=== PATIENT | female | born 1955 | race Caucasian/White ===

== ENCOUNTER 2017-02-06 01:29 | Inpatient (IN) | payer MEDICARE ==
[~2017-02-06] VITALS: Ht 162.6 cm; Wt 93.8 kg
[2017-02-06] MEDS ORDERED: ONDANSETRON ODT 4 MG ONE (01:59)
[2017-02-06] MEDS ORDERED: SODIUM CHLORIDE 0.9% 1,000ML IVBOLUS ONE (02:00)
[2017-02-06] MEDS ORDERED: SODIUM CHLORIDE FLUSH 10ML SYR IVF ONE (02:00)
[2017-02-06] MEDS ORDERED: LORazepam 2 MG/ML, 1ML ONE (02:08)
[2017-02-06 02:13] LABS: HEMATOCRIT 40.4 % (34.6-47.8); HEMOGLOBIN 13.9 g/dL (11.7-16.4); WHITE BLOOD COUNT 11.4 x10^3/uL (3.4-10)
[2017-02-06] MEDS ORDERED: HYDROmorphone 1 MG/ML, 1ML ONE ×3 (02:14→04:45)
[2017-02-06 02:24] LABS: ASPARTATE AMINO TRANSFERASE 25 U/L (15-37); BLOOD UREA NITROGEN 15 mg/dL (7-18)
[2017-02-06] MEDS ORDERED: LORazepam 2 MG/ML, 1ML IVPush ONE (02:30)
[2017-02-06] MEDS ORDERED: ONDANSETRON ODT 4 MG PO ONE (02:30)
[2017-02-06] MEDS ORDERED: HYDROmorphone 1 MG/ML, 1ML IV ONE ×2 (02:30→03:30)
[2017-02-06 02:35] LABS: IS PT STATUS REG ER OR PRE ER? YES
[2017-02-06] MEDS ORDERED: OMNIPAQUE 350 MG/ML, 100ML BOTTLE ONE (03:02)
[2017-02-06] MEDS ORDERED: ONDANSETRON 2MG/ML, 2ML IVPush PRN (04:30)
[2017-02-06] MEDS ORDERED: ACETAMINOPHEN 325 MG TABLET PO PRN (04:30)
[2017-02-06] MEDS ORDERED: LORazepam 2 MG/ML, 1ML IVPush PRN (04:30)
[2017-02-06] MEDS ORDERED: hydrALAzine 20 MG/ML, 1ML IVPush PRN (04:30)
[2017-02-06] MEDS: HYDROmorphone 2 MG/ML, 1ML IVPush PRN ×3 (04:52→13:27)
[2017-02-06 05:44] VITALS: BP_SYST 122; BP_SYST 134; BP_DIAS 70; BP_DIAS 75
[2017-02-06] MEDS: GABAPENTIN 300 MG CAPSULE PO SCH ×4 (06:12→21:58)
[2017-02-06] MEDS: ENOXAPARIN 40 MG/0.4 ML SQ SCH (06:12)
[2017-02-06] MEDS: LEVOTHYROXINE 100 MCG TABLET PO SCH (06:12)
[2017-02-06 06:57] VITALS: BP 106/66
[2017-02-06 06:58] VITALS: BP 105/67
[2017-02-06 06:59] VITALS: BP 99/69
[2017-02-06] MEDS: SERTRALINE 50MG TABLET PO SCH (09:53)
[2017-02-06] MEDS: SODIUM CHLORIDE FLUSH 10ML SYR IVF SCH ×2 (09:54→21:58)
[2017-02-06] MEDS: PANTOPRAZOLE 40 MG IV IVPush SCH (09:54)
[2017-02-06] MEDS: LAMOTRIGINE 100 MG TABLET PO SCH ×2 (10:00→21:58)
[2017-02-06 14:00] VITALS: BP 102/64
[2017-02-06 20:00] VITALS: BP 114/69
[2017-02-06] MEDS: OXYcodone IR 5MG TABLET PO PRN (21:58)
[2017-02-07] MEDS: HYDROmorphone 2 MG/ML, 1ML IVPush PRN ×3 (01:20→18:33)
[2017-02-07 02:00] VITALS: BP 93/58
[2017-02-07] MEDS: ENOXAPARIN 40 MG/0.4 ML SQ SCH (06:10)
[2017-02-07] MEDS: LEVOTHYROXINE 100 MCG TABLET PO SCH (06:10)
[2017-02-07] MEDS: GABAPENTIN 300 MG CAPSULE PO SCH ×4 (06:11→22:42)
[2017-02-07 07:21] VITALS: BP 122/64
[2017-02-07] MEDS: LAMOTRIGINE 100 MG TABLET PO SCH ×2 (08:42→22:42)
[2017-02-07] MEDS: PANTOPRAZOLE 40 MG IV IVPush SCH (08:42)
[2017-02-07] MEDS: SODIUM CHLORIDE FLUSH 10ML SYR IVF SCH ×2 (08:42→22:43)
[2017-02-07] MEDS: SERTRALINE 50MG TABLET PO SCH (08:42)
[2017-02-07] MEDS ORDERED: GABAPENTIN 100 MG CAPSULE ONE (10:12)
[2017-02-07] MEDS: DOCUSATE 100 MG CAPSULE PO PRN ×2 (10:13→22:42)
[2017-02-07] MEDS: OXYcodone IR 5MG TABLET PO PRN ×2 (13:30→22:46)
[2017-02-07 14:55] VITALS: BP 117/70
[2017-02-07 21:33] VITALS: BP 84/46
[2017-02-07] MEDS: POLYETHYLENE GLYCOL 17 GM PACKET NG PRN (22:42)
[2017-02-08] MEDS: HYDROmorphone 2 MG/ML, 1ML IVPush PRN ×2 (01:46→08:25)
[2017-02-08 02:41] VITALS: BP 104/64
[2017-02-08] MEDS ORDERED: LEVOTHYROXINE 150 MCG TABLET PO SCH (06:00)
[2017-02-08] MEDS: GABAPENTIN 300 MG CAPSULE PO SCH (06:28)
[2017-02-08] MEDS: OXYcodone IR 5MG TABLET PO PRN (06:28)
[2017-02-08] MEDS: ENOXAPARIN 40 MG/0.4 ML SQ SCH (06:29)
[2017-02-08] MEDS ORDERED: LEVO150T PO (07:43)
[2017-02-08] MEDS ORDERED: LAMO100T PO (07:43)
[2017-02-08] MEDS ORDERED: GABA300C10 PO (07:43)
[2017-02-08] MEDS ORDERED: SERT50TA5 PO (07:43)
[2017-02-08] MEDS: LAMOTRIGINE 100 MG TABLET PO SCH (08:24)
[2017-02-08] MEDS: SODIUM CHLORIDE FLUSH 10ML SYR IVF SCH (08:24)
[2017-02-08] MEDS: POLYETHYLENE GLYCOL 17 GM PACKET NG PRN (08:25)
[2017-02-08] MEDS: SERTRALINE 50MG TABLET PO SCH (08:26)
[2017-02-08 08:48] VITALS: BP 108/61
[2017-02-08] MEDS ORDERED: HYDR-3240 PO (10:06)
== END 2017-02-08 10:14 | disposition home or self-care (01) | DRG 644 ==
LOC: ED 02:11 → EDIP 04:08 → 4EST 05:23 → DCLOUNGE 02-08 10:03
PROVIDERS: ADMIT Family Medicine; ATTEND Internal Medicine
DX: E03.9 Hypothyroidism, unspecified (principal); A69.20 Lyme disease, unspecified; E87.6 Hypokalemia; F32.9 Major depressive disorder, single episode, unspecified; G62.9 Polyneuropathy, unspecified; Z80.8 Family history of malignant neoplasm of other organs or systems; Z82.3 Family history of stroke; Z83.3 Family history of diabetes mellitus; Z85.820 Personal history of malignant melanoma of skin; Z90.49 Acquired absence of other specified parts of digestive tract; Z90.89 Acquired absence of other organs; Z90.710 Acquired absence of both cervix and uterus; Z88.8 Allergy status to other drugs, medicaments and biological substances
CPT/HCPCS: 36415; 51702; 71275; 80053; 82533; 84443; 84484; 85025; 85610; 93005; 93306; 93880; 96361; 96374; 96375; 96376; J1170; J1650; J2405; Q0162; Q9967; C9113; J2060; J7030

== ENCOUNTER → 2018-01-23 | Outpatient (CLI) | payer MEDICARE, OTHER ==
[~2018-01-23] MED LIST: CLON0.5T11 PO; GABA300C10 PO; GABA600T2 PO; HYDR-3240 PO; LAMO100T PO; LAMO200T3 PO; LEVO100T PO; LEVO150T PO; SERT25TA3 PO; SERT50TA5 PO
== END | disposition home or self-care (01) ==
LOC: STAR 13:01
PROVIDERS: ATTEND Orthopaedic Surgery
DX: Z01.818 Encounter for other preprocedural examination (principal); S83.282A Other tear of lateral meniscus, current injury, left knee, initial encounter; X58.XXXA Exposure to other specified factors, initial encounter; Y93.89 Activity, other specified; Y92.89 Other specified places as the place of occurrence of the external cause; Y99.8 Other external cause status
CPT/HCPCS: 93005

== ENCOUNTER → 2018-01-28 | Outpatient (CLI) | payer OTHER | END | disposition home or self-care (01) | LOC: RAD 16:03 | PROVIDERS: ATTEND Urology | DX: M51.86 Other intervertebral disc disorders, lumbar region (principal); N20.9 Urinary calculus, unspecified; Z87.442 Personal history of urinary calculi | CPT/HCPCS: 74018 ==

== ENCOUNTER 2018-04-01 14:04 | Inpatient (IN) | payer OTHER ==
[~2018-04-01] VITALS: Ht 157.5 cm; Wt 84.1 kg
[~2018-04-01 14:04] MED LIST changes: -GABA600T2 PO; +GABA600T7 PO; +SERT50TA28 PO; -SERT50TA5 PO
--- NOTE | 2018-04-01 14:05 | NUR ---
JOSE FOSTER FROM UROLOGY OFFICE W/ CO L FLANK PAIN. +BLOOD IN URINE/INCONTINENCE OF URINE AND STOOL. PT REPORTS HX OF CHRONIC KIDNEY STONES AND MULTIPLE SX TO REMOVE STONES. PT DENIES CP/SOB/N/V/D/FEVER. "THEY SENT ME HERE TO HAVE THE STONES REMOVED". IV ESTABLISHED AND PT MEDICATED W/ TORADOL, MORPHINE AND ZOFRAN CASH [employer] CALCULATOR. UPON ARRIVAL, PT REPORTS 7/10 PAIN AND DENIES NEED FOR FURTHER PAIN MEDICATIONS. SO AT BEDSIDE. ERP AT BEDSIDE FOR INITIAL ASSESSMENT.
[2018-04-01] MEDS ORDERED: SODIUM CHLORIDE FLUSH 10ML SYR IVF ONE (14:30)
--- NOTE | 2018-04-01 14:50 | NUR ---
EUNICE VILLEDA COLLECTED AND WALKED TO LAB. PT TO XRAY ON 2L BY NELIDA FOR SUPPORT
[2018-04-01 15:08] LABS: MICROSCOPIC AUTO
[2018-04-01 15:09] LABS: BASOPHILS % (AUTO) 1 % (0-1); EOSINOPHILS # (AUTO) 0.07 x10^3/uL (0-0.4); EOSINOPHILS % (AUTO) 1 % (1-7); LYMPHOCYTES # (AUTO) 2.62 x10^3/uL (1-3.4); LYMPHOCYTES % (AUTO) 23 % (22-44); MD NO; MEAN CORPUSCULAR HEMOGLOBIN 30.8 pg (27.0-34.8); MEAN CORPUSCULAR HGB CONC 33.9 g/dL (32.4-35.8); MEAN CORPUSCULAR VOLUME 90.6 fL (80-100); MEAN PLATELET VOLUME 7.3 fL (7.4-10.4); MONOCYTES # (AUTO) 0.77 x10^3/uL (0.2-0.8); MONOCYTES % (AUTO) 7 % (2-9); NEUTROPHILS % (AUTO) 69 % (42-75); PLATELET COUNT 419 x10^3/uL (130-400); RED BLOOD COUNT 4.06 x10^6/uL (3.82-5.3); RED CELL DISTRIBUTION WIDTH 13.3 % (9.6-15.2)
[2018-04-01 15:14] LABS: CULTURE INDICATED? YES
[2018-04-01 15:21] LABS: ALBUMIN 4.2 g/dL (3.4-5.0); ANION GAP 6 mmol/L (5-15); CALCIUM 9.5 mg/dL (8.5-10.1); CHLORIDE 108 mmol/L (98-107)
[2018-04-01 15:23] LABS: CREATININE 1.01 mg/dL (0.55-1.02)
[2018-04-01] MEDS ORDERED: CEFTRIAXONE PMX 1GM/50ML 50 ML ONE (16:09)
[2018-04-01] MEDS ORDERED: MORPHINE SULFATE 4 MG/ML, 1ML ONE (16:09)
--- NOTE | 2018-04-01 16:16 | NUR ---
PT MEDICATED PER EMAR FOR 10/26 PAIN. ABX INITIATED. NO BC PER ERP. PT REQUESTING ADM. ERP AWARE.
[2018-04-01] MEDS ORDERED: CEFTRIAXONE PMX 1GM/50ML 50 ML IV ONE ×2 (16:30→20:00)
[2018-04-01] MEDS ORDERED: MORPHINE SULFATE 4 MG/ML, 1ML IVPush ONE (16:30)
--- NOTE | 2018-04-01 16:39 | NUR ---
POC IS ADMIT. PT IN CT AT THIS TIME.
--- NOTE | 2018-04-01 16:49 | NUR ---
NO S/S OF ABX RXN NOTED. PT REPORTS IMPROVEMENT IN PAIN WITH MEDICATIONS. SPO2>90% ON 2L BY NC.
--- NOTE | 2018-04-01 18:00 | NUR ---
PT LAYING IN MORE PALMER NOTED. SO REMAINS AT BEDSIDE. PT DENIES NEEDS
[2018-04-01] MEDS ORDERED: OXYcodone/APAP 10/325MG TABLET ONE (18:31)
[2018-04-01] MEDS ORDERED: OXYcodone/APAP 10/325MG TABLET PO ONE (19:00)
--- NOTE | 2018-04-01 19:00 | NUR ---
PT MEDICATED PER EMAR FOR INCREASED PAIN
[2018-04-01] MEDS ORDERED: DOCUSATE 100 MG CAPSULE PO PRN (20:00)
[2018-04-01] MEDS ORDERED: ONDANSETRON ODT 4 MG PO PRN (20:00)
[2018-04-01] MEDS ORDERED: PROMETHAZINE 25 MG/ML, 1ML IM PRN (20:00)
[2018-04-01] MEDS ORDERED: LABETALOL 5MG/ML, 20ML IVPush PRN (20:00)
[2018-04-01] MEDS ORDERED: hydrALAzine 20 MG/ML, 1ML IVPush PRN (20:00)
[2018-04-01] MEDS ORDERED: POLYETHYLENE GLYCOL 17 GM PACKET PO PRN (20:00)
[2018-04-01] MEDS ORDERED: BISACODYL 10 MG SUPP PR PRN (20:00)
[2018-04-01] MEDS ORDERED: ACETAMINOPHEN 325 MG TABLET PO PRN (20:00)
[2018-04-01 20:22] LABS: HEMOGLOBIN A1C 5.3 % (4.2-6.3)
[2018-04-01 20:23] LABS: FREE T4 (FREE THYROXINE) 1.18 ng/dL (0.76-1.46); THYROID STIMULATING HORMONE 5.88 mIU/L (0.358-3.740)
[2018-04-01] MEDS: GABAPENTIN 300 MG CAPSULE PO SCH (21:02)
[2018-04-01] MEDS: morphine SULFATE 10 MG/ML, 1ML IVPush PRN ×2 (21:03→21:22)
[2018-04-01] MEDS: SODIUM CHLORIDE 0.9% 1,000 ML IV SCH (21:11)
[2018-04-01] MEDS: HYDROcodone/APAP 5/325 TABLET PO PRN (23:08)
[2018-04-01 23:17] VITALS: BP 116/74
[2018-04-01] MEDS: ONDANSETRON 2MG/ML, 2ML IVPush PRN (23:54)
[2018-04-02] MEDS: morphine SULFATE 10 MG/ML, 1ML IVPush PRN ×4 (00:18→13:01)
[2018-04-02] MEDS: HYDROcodone/APAP 5/325 TABLET PO PRN ×2 (03:31→09:07)
[2018-04-02 04:15] VITALS: BP 100/57
[2018-04-02 05:33] LABS: BASOPHILS # (AUTO) 0.03 x10^3/uL (0-0.1); BASOPHILS % (AUTO) 0 % (0-1); EOSINOPHILS # (AUTO) 0.09 x10^3/uL (0-0.4); EOSINOPHILS % (AUTO) 1 % (1-7); LYMPHOCYTES # (AUTO) 2.23 x10^3/uL (1-3.4); LYMPHOCYTES % (AUTO) 24 % (22-44); MD NO; MEAN CORPUSCULAR HEMOGLOBIN 31.1 pg (27.0-34.8); MEAN CORPUSCULAR HGB CONC 34.4 g/dL (32.4-35.8); MEAN CORPUSCULAR VOLUME 90.6 fL (80-100); MEAN PLATELET VOLUME 7.6 fL (7.4-10.4); MONOCYTES # (AUTO) 0.73 x10^3/uL (0.2-0.8); MONOCYTES % (AUTO) 8 % (2-9); NEUTROPHILS # (AUTO) 6.32 x10^3/uL (1.8-6.8); NEUTROPHILS % (AUTO) 67 % (42-75); PLATELET COUNT 379 x10^3/uL (130-400); RED BLOOD COUNT 3.55 x10^6/uL (3.82-5.3); RED CELL DISTRIBUTION WIDTH 13.6 % (9.6-15.2)
[2018-04-02 05:45] LABS: ALBUMIN 3.4 g/dL (3.4-5.0); ANION GAP 5 mmol/L (5-15); CALCIUM 8.8 mg/dL (8.5-10.1); CHLORIDE 108 mmol/L (98-107)
[2018-04-02 05:50] LABS: ALANINE AMINOTRANSFERASE 23 U/L (12-78); ALKALINE PHOSPHATASE 72 U/L (45-117); BILIRUBIN,TOTAL 0.3 mg/dL (0.2-1.0); CHOL/HDL RATIO 6.2; CHOLESTEROL, TOTAL 285 mg/dL (140-239); CREATININE 1.07 mg/dL (0.55-1.02); HDL CHOL % 16 % (28-40); HDL CHOLESTEROL (DIRECT) 46 mg/dL (40-60); LDL CHOLESTEROL,CALCULATED 206 mg/dL (54-169); LDL/HDL RATIO 4.5 (0.5-3.0); TOTAL PROTEIN 6.6 g/dL (6.4-8.2); TRIGLYCERIDES 165 mg/dL (50-200); VLDL CHOLESTEROL 33 mg/dL (0-25)
[2018-04-02] MEDS: LEVOTHYROXINE 100 MCG TABLET PO SCH (06:23)
[2018-04-02] MEDS: GABAPENTIN 300 MG CAPSULE PO SCH ×4 (06:23→21:04)
[2018-04-02] MEDS: SODIUM CHLORIDE 0.9% 1,000 ML IV SCH ×3 (06:27→21:21)
[2018-04-02 09:01] VITALS: BP 111/51
[2018-04-02] MEDS: LAMOTRIGINE 200 MG TABLET PO SCH (09:05)
[2018-04-02] MEDS: SERTRALINE 50MG TABLET PO SCH (09:06)
[2018-04-02] MEDS ORDERED: MORPHINE SULFATE 4 MG/ML, 1ML ONE (12:59)
[2018-04-02 13:05] VITALS: BP 102/67
[2018-04-02] MEDS ORDERED: LORazepam 2 MG/ML, 1ML ONE (13:56)
[2018-04-02] MEDS ORDERED: LORazepam 2 MG/ML, 1ML IVPush ONE (14:00)
[2018-04-02] MEDS ORDERED: GADOBUTROL 10 MMOL/10 ML PFS ONE (14:55)
[2018-04-02] MEDS ORDERED: CEFTRIAXONE PMX 2GM/50ML 50 ML IV SCH (18:00)
[2018-04-02] MEDS: ONDANSETRON 2MG/ML, 2ML IVPush PRN (18:09)
[2018-04-02 20:30] VITALS: BP 106/64
[2018-04-02] MEDS ORDERED: ATORVASTATIN 40 MG TABLET PO SCH (21:00)
[2018-04-02] MEDS ORDERED: GUAIFENESIN 100 MG/5 ML, 10ML UDC PO PRN (23:00)
[2018-04-02 23:34] LABS: RAPID INFLUENZA A Negative (Negative); RAPID INFLUENZA B Negative (Negative)
[2018-04-03] MEDS: morphine SULFATE 10 MG/ML, 1ML IVPush PRN (03:51)
[2018-04-03 04:18] VITALS: BP_SYST 101; BP_DIAS 57; BP_DIAS 7
[2018-04-03] MEDS ORDERED: ASPIRIN 81 MG TABLET EC PO SCH (06:00)
[2018-04-03] MEDS: GABAPENTIN 300 MG CAPSULE PO SCH ×2 (06:05→10:54)
[2018-04-03] MEDS: LEVOTHYROXINE 100 MCG TABLET PO SCH (06:05)
[2018-04-03 06:44] VITALS: BP 90/51
[2018-04-03] MEDS: LAMOTRIGINE 200 MG TABLET PO SCH (07:19)
[2018-04-03] MEDS: SERTRALINE 50MG TABLET PO SCH (07:19)
[2018-04-03 10:05] VITALS: BP 78/47
[2018-04-03] MEDS ORDERED: SODIUM CHLORIDE 0.9%, 500ML IVBOLUS ONE (11:00)
[2018-04-03] MEDS ORDERED: CEFD300C37 PO (12:46)
[2018-04-03] MEDS ORDERED: ASPI81TA45 PO (12:46)
[2018-04-03] MEDS ORDERED: ATOR40TA78 PO (12:46)
[2018-04-03 14:09] VITALS: BP 98/58
== END 2018-04-03 15:05 | disposition home or self-care (01) | DRG 690 ==
LOC: ED 14:31 → EDIP 18:24 → 4NOR 20:20 → DCLOUNGE 04-03 14:49
PROVIDERS: ADMIT Internal Medicine; ATTEND Internal Medicine
PROC: 0T9B70Z Drainage of Bladder with Drainage Device, Via Natural or Artificial Opening (ICD-10-PCS; principal; 2018-04-01)
DX: N12 Tubulo-interstitial nephritis, not specified as acute or chronic (principal); A69.20 Lyme disease, unspecified; Z90.49 Acquired absence of other specified parts of digestive tract; E03.9 Hypothyroidism, unspecified; E78.5 Hyperlipidemia, unspecified; F43.10 Post-traumatic stress disorder, unspecified; G62.9 Polyneuropathy, unspecified; I87.8 Other specified disorders of veins; M51.36 Other intervertebral disc degeneration, lumbar region; R32 Unspecified urinary incontinence; Z87.442 Personal history of urinary calculi; Z88.7 Allergy status to serum and vaccine; Z90.710 Acquired absence of both cervix and uterus; Z88.8 Allergy status to other drugs, medicaments and biological substances; Z96.652 Presence of left artificial knee joint; F31.9 Bipolar disorder, unspecified; Z79.82 Long term (current) use of aspirin; Z79.899 Other long term (current) drug therapy
CPT/HCPCS: 36415; 70450; 72157; 72158; 74018; 74176; 76770; 80048; 80053; 80061; 81001; 82040; 83036; 83735; 84439; 84443; 85025; 87077; 87086; 87186; 87400; 96374; 99285; A9585; G0378; J0696; J2405; J2060; J2270; J7030; J7040

== ENCOUNTER → 2018-05-15 | Outpatient (CLI) | payer OTHER ==
[~2018-05-15] MED LIST changes: +ASPI-496 PO; +ASPI81TA45 PO; +ATOR40TA78 PO; +CEFD300C37 PO; +MIRA25TA PO; +myrbetriq PO
[2018-05-15 14:55] LABS: MICROSCOPIC AUTO
== END | disposition home or self-care (01) ==
LOC: STAR 13:18
PROVIDERS: ATTEND Anesthesiology
DX: Z01.818 Encounter for other preprocedural examination (principal); N39.3 Stress incontinence (female) (male); I87.8 Other specified disorders of veins; Z87.442 Personal history of urinary calculi; Z90.49 Acquired absence of other specified parts of digestive tract
CPT/HCPCS: 74018; 81001; 87086; 93005

== ENCOUNTER 2018-05-20 11:08 | Observation (INO) | payer OTHER ==
[2018-05-15 13:47] VITALS: BP 124/81
[~2018-05-20] VITALS: Ht 162.6 cm; Wt 83.8 kg
[2018-05-20] MEDS ORDERED: BUPR150T8 PO (11:42)
[2018-05-20] MEDS: LACTATED RINGERS 1,000 ML IV SCH ×2 (11:59→12:00)
[2018-05-20] MEDS ORDERED: FENTANYL PF 100 MCG/2ML ONE ×2 (12:32→14:00)
[2018-05-20] MEDS ORDERED: MIDAZOLAM 1 MG/ML, 2ML ONE (12:32)
[2018-05-20] MEDS ORDERED: EPINEPHRINE 1 MG/ML, 1ML ONE (12:40)
[2018-05-20] MEDS ORDERED: BUPIVACAINE/PF 0.25% ONE (12:40)
[2018-05-20] MEDS ORDERED: PROPOFOL 10 MG/ML, 20ML ONE (12:41)
[2018-05-20] MEDS ORDERED: DEXAMETHASONE 4 MG/ML, 1ML ONE (12:41)
[2018-05-20] MEDS ORDERED: LIDOCAINE 2% 100MG/5ML SYRINGE ONE (12:41)
[2018-05-20] MEDS ORDERED: NEOMY/POLYMYXIN B GU IRR. 1 ML ONE (12:41)
[2018-05-20] MEDS ORDERED: CIPROFLOXACIN/PMX 400MG/200ML 200 ML ONE (13:05)
[2018-05-20] MEDS ORDERED: METOCLOPRAMIDE 5 MG/ML, 2ML IV PRN (13:30)
[2018-05-20] MEDS ORDERED: KETOROLAC 30 MG/1 ML IV PRN (13:30)
[2018-05-20] MEDS ORDERED: MORPHINE SULFATE 4 MG/ML, 1ML IVPush PRN (13:30)
[2018-05-20] MEDS ORDERED: hydrALAzine 20 MG/ML, 1ML IV PRN (13:30)
[2018-05-20] MEDS ORDERED: DIPHENHYDRAMINE 50 MG/ML, 1ML IVPush PRN (13:30)
[2018-05-20] MEDS ORDERED: OXYcodone 5 MG/5 ML ORAL.SOL UDC PO PRN (13:30)
[2018-05-20] MEDS ORDERED: LABETALOL 5MG/ML, 20ML IV PRN (13:30)
[2018-05-20] MEDS ORDERED: ACETAMINOPHEN 325 MG TABLET PO PRN (13:30)
[2018-05-20] MEDS: FENTANYL PF 100 MCG/2ML IV PRN ×2 (13:58→14:10)
[2018-05-20] MEDS ORDERED: ONDANSETRON 2MG/ML, 2ML IV PRN (14:00)
[2018-05-20] MEDS ORDERED: OXYcodone 5 MG/5 ML ORAL.SOL UDC ONE (14:00)
[2018-05-20] MEDS: LORazepam 2 MG/ML, 1ML IVPush PRN ×2 (14:01→14:11)
[2018-05-20] MEDS ORDERED: LORazepam 2 MG/ML, 1ML ONE (14:01)
[2018-05-20] MEDS ORDERED: PROMETHAZINE 25 MG/ML, 1ML ONE (14:21)
[2018-05-20] MEDS: HYDROmorphone 2 MG/ML, 1ML IVPush PRN ×2 (14:21→14:33)
[2018-05-20] MEDS ORDERED: KETOROLAC 30 MG/1 ML ONE (14:26)
[2018-05-20] MEDS ORDERED: HYDROmorphone 2 MG/ML, 1ML ONE (14:27)
[2018-05-20] MEDS ORDERED: PROMETHAZINE 25 MG/ML, 1ML IV PRN (14:30)
[2018-05-20] MEDS: GABAPENTIN 300 MG CAPSULE PO SCH ×2 (16:00→21:52)
[2018-05-20] MEDS: OXYcodone/APAP 5/325MG TABLET PO PRN ×2 (18:09→21:51)
[2018-05-20 19:53] VITALS: BP 102/59
[2018-05-20] MEDS ORDERED: ATORVASTATIN 40 MG TABLET PO SCH (21:00)
[2018-05-20] MEDS: BUPROPION 75 MG TABLET PO SCH (21:51)
[2018-05-21 00:22] VITALS: BP 92/48
[2018-05-21] MEDS ORDERED: MORPHINE SULFATE 4 MG/ML, 1ML ONE (00:35)
[2018-05-21] MEDS: morphine SULFATE 10 MG/ML, 1ML IVPush PRN ×2 (00:45→03:49)
[2018-05-21] MEDS: OXYcodone/APAP 5/325MG TABLET PO PRN ×2 (02:16→06:30)
[2018-05-21 04:11] VITALS: BP 115/54
[2018-05-21] MEDS ORDERED: LEVOTHYROXINE 100 MCG TABLET PO SCH (06:00)
[2018-05-21] MEDS: GABAPENTIN 300 MG CAPSULE PO SCH ×2 (06:28→10:00)
[2018-05-21 07:05] VITALS: BP 101/46
[2018-05-21] MEDS ORDERED: LAMOTRIGINE 200 MG TABLET PO SCH (09:00)
[2018-05-21] MEDS ORDERED: MYRBETRIQ 25 MG PO SCH (09:00)
[2018-05-21] MEDS: BUPROPION 75 MG TABLET PO SCH (09:14)
[2018-05-21] MEDS ORDERED: KETO10TA PO (09:59)
== END 2018-05-21 10:08 | disposition home or self-care (01) ==
LOC: OUT 11:08 → ORIP 14:45 → 4NOR 15:28 → DCLOUNGE 05-21 10:03
PROVIDERS: ADMIT Urology; ATTEND Urology
DX: N39.3 Stress incontinence (female) (male) (principal); N36.41 Hypermobility of urethra; M54.32 Sciatica, left side; N39.0 Urinary tract infection, site not specified; E03.9 Hypothyroidism, unspecified; F31.89 Other bipolar disorder; G62.89 Other specified polyneuropathies; E78.5 Hyperlipidemia, unspecified; Z79.899 Other long term (current) drug therapy
CPT/HCPCS: 57288; 96374; 96376; C1771; G0378; J0171; J0744; J1100; J1170; J1885; J2060; J2250; J2270; J2550; J2704; J3010; J3490; J7120